=== PATIENT | male | born 1960 | race Caucasian/White ===

== ENCOUNTER → 2016-11-10 | Outpatient (CLI) | payer OTHER | LOC: BRMIMAGING 08:31 | PROVIDERS: ATTEND Internal Medicine Rheumatology ==

== ENCOUNTER → 2018-07-09 | Outpatient (CLI) | payer OTHER | LOC: BMCIMAGING 11:40 | PROVIDERS: ATTEND Internal Medicine Rheumatology | DX: M06.042 Rheumatoid arthritis without rheumatoid factor, left hand (principal); M06.041 Rheumatoid arthritis without rheumatoid factor, right hand ==